=== PATIENT | male | born 1940 | race Asian ===

== ENCOUNTER 2023-05-03 10:38 | Emergency (ER) | payer OTHER ==
[2023-05-03] MEDS ORDERED: ATORVASTATIN CA20 MG PO (10:50)
[2023-05-03] MEDS ORDERED: LOSARTAN POTAS100 MG PO (10:50)
== END 2023-05-03 14:33 | disposition home or self-care (01) ==
LOC: ER 10:38
DX: S01.21XA Laceration without foreign body of nose, initial encounter (principal); W31.89XA Contact with other specified machinery, initial encounter; Y93.A1 Activity, exercise machines primarily for cardiorespiratory conditioning; Y92.9 Unspecified place or not applicable; Y99.9 Unspecified external cause status